=== PATIENT | female | born 1980 | race Hispanic/Latino ===

== ENCOUNTER 2020-11-14 08:17 | Outpatient (CLI) | payer OTHER ==
[2020-11-14 21:45] LABS: SARS-CoV-2 PCR by NAA Not Detected (NotDetected)
== END 2020-11-14 08:18 | disposition home or self-care (01) ==
LOC: CSHLAB 08:17
PROVIDERS: ATTEND Obstetrics & Gynecology
DX: Z20.822 Contact with and (suspected) exposure to COVID-19 (principal)
CPT/HCPCS: U0003; U0005

== ENCOUNTER 2020-11-17 18:54 | Inpatient (IN) | payer MEDICAID, OTHER, SELFPAY ==
[2020-11-17 19:44] VITALS: BMI 29.2
[2020-11-17] MEDS ORDERED: Promethazine HCl 25 MG/ML VIAL IM PRN (20:31)
[2020-11-17] MEDS ORDERED: Carboprost 250 MCG/ML AMP IM PRN (20:31)
[2020-11-17] MEDS ORDERED: Ondansetron PF 4 MG/2 ML Vial IVP PRN (20:31)
[2020-11-17] MEDS ORDERED: Lidocaine 1% (PF) 30 ML VIAL SC PRN (20:31)
[2020-11-17] MEDS ORDERED: Methylergonovine 0.2 MG/ML VIAL IM PRN (20:31)
[2020-11-17] MEDS ORDERED: hydrALAZINE 20 MG/ML VIAL SLOW IVP PRN (20:31)
[2020-11-17] MEDS ORDERED: Misoprostol 200 MCG TAB PR PRN (20:31)
[2020-11-17] MEDS ORDERED: Ibuprofen 800 MG TAB PO PRN (20:31)
[2020-11-17] MEDS ORDERED: Misoprostol 100 MCG TAB ONE (20:39)
[2020-11-17] MEDS: Misoprostol 100 MCG TAB VAG SCH ×2 (20:41→23:57)
[2020-11-17] MEDS ORDERED: Misoprostol 100 MCG TAB VAG SCH (20:45)
[2020-11-17] MEDS ORDERED: NS w/ Oxytocin 30 units 500 ML IV SCH ×2 (20:45)
[2020-11-17] MEDS ORDERED: NS w/ Oxytocin 30 units 500 ML IVPB SCH (20:45)
[2020-11-17] MEDS ORDERED: Lactated Ringer's 1,000 ML IV SCH (20:45)
[2020-11-17 20:47] LABS: Hemoglobin 11.3 g/dL (12.0-15.5); Mean Corpuscular HGB CONC 35.2 g/dL (32.0-36.0); Mean Corpuscular Hemoglobin 31.3 pg (27.0-33.0); Mean Corpuscular Volume 88.9 fl (81.6-98.3); Mean Platelet Volume 11.5 fl (7.4-10.4); Platelet Count 218 10x3/uL (150-450); RBC Distribution Width 12.4 % (11.5-14.5); Red Blood Cell (RBC) Count 3.61 10x6/uL (3.90-5.03); White Blood Cell (WBC) Count 9.1 10x3/uL (3.5-10.5)
[2020-11-17 21:16] LABS: Hep B Surf Ag Non-Reactive S/CO (NonReactive); Syphilis Antibody Nonreactive (Nonreactive); Syphilis Antibody Index 0.05 S/CO (<1.00 Non-Reactive)
[2020-11-18] MEDS ORDERED: NS w/ Oxytocin 30 units 500 ML IV SCH (10:06)
[2020-11-18] MEDS ORDERED: Boostrix 0.5 ML (Tdap) VIAL IM ONE (10:06)
[2020-11-18] MEDS ORDERED: Benzocaine-Menthol 82.5 ML CAN TOP PRN (10:06)
[2020-11-18] MEDS ORDERED: Measles/Mumps/Rubella 10 MCG/0.5 ML VIAL SC ONE (10:06)
[2020-11-18] MEDS ORDERED: Milk Of Magnesia 30 ML UDCUP PO PRN (10:06)
[2020-11-18] MEDS ORDERED: Promethazine HCl 25 MG/ML VIAL IM PRN (10:06)
[2020-11-18] MEDS ORDERED: hydrALAZINE 20 MG/ML VIAL SLOW IVP PRN (10:06)
[2020-11-18] MEDS ORDERED: Ondansetron PF 4 MG/2 ML Vial IVP PRN (10:06)
[2020-11-18] MEDS ORDERED: Preparation H Ointment 28 GM TUBE PR PRN (10:06)
[2020-11-18] MEDS ORDERED: diphenhydrAMINE 25 MG CAP PO PRN (10:06)
[2020-11-18] MEDS ORDERED: Lanolin Ointment 7 GM TUBE TOP PRN (10:06)
[2020-11-18] MEDS ORDERED: Bisacodyl 10 MG SUPP PR PRN (10:06)
[2020-11-18] MEDS ORDERED: Prenatal Vitamin 1 TAB PO SCH (10:30)
[2020-11-18] MEDS ORDERED: Docusate Calcium (SURFAK) 240 MG CAP PO SCH (10:30)
[2020-11-18] MEDS: Ibuprofen 800 MG TAB PO SCH ×2 (13:19→21:40)
[2020-11-18] MEDS: Misoprostol 100 MCG TAB VAG SCH (14:49)
[2020-11-18] MEDS: Ferrous Sulfate 325 MG TAB PO SCH (14:49)
[2020-11-18] MEDS: Docusate Calcium (SURFAK) 240 MG CAP PO SCH (21:40)
[2020-11-19] MEDS: Ibuprofen 800 MG TAB PO SCH (04:59)
[2020-11-19 07:12] LABS: Hemoglobin 10.2 g/dL (12.0-15.5); Mean Corpuscular HGB CONC 34.7 g/dL (32.0-36.0); Mean Corpuscular Hemoglobin 31.4 pg (27.0-33.0); Mean Corpuscular Volume 90.5 fl (81.6-98.3); Mean Platelet Volume 11.5 fl (7.4-10.4); Platelet Count 201 10x3/uL (150-450); RBC Distribution Width 12.5 % (11.5-14.5); Red Blood Cell (RBC) Count 3.25 10x6/uL (3.90-5.03); White Blood Cell (WBC) Count 11.4 10x3/uL (3.5-10.5)
[2020-11-19] MEDS ORDERED: Prenatal Vitamin 1 TAB PO SCH (09:00)
[2020-11-19 09:04] VITALS: BP 116/70; TEMP 98.7
[2020-11-19] MEDS: Docusate Calcium (SURFAK) 240 MG CAP PO SCH (09:21)
[2020-11-19] MEDS: Ferrous Sulfate 325 MG TAB PO SCH (09:22)
== END 2020-11-19 12:10 | disposition home or self-care (01) | DRG 807 ==
LOC: CSHLD 18:54 → CSHPP 11-18 10:25
PROVIDERS: ADMIT Family Medicine; ATTEND Family Medicine
PROC: 10E0XZZ Delivery of Products of Conception, External Approach (ICD-10-PCS; principal; 2020-11-18)
PROC: 3E033VJ Introduction of Other Hormone into Peripheral Vein, Percutaneous Approach (ICD-10-PCS; 2020-11-18)
PROC: 3E033VJ Introduction of Other Hormone into Peripheral Vein, Percutaneous Approach (ICD-10-PCS; 2020-11-18)
DX: O69.9XX0 Labor and delivery complicated by cord complication, unspecified, not applicable or unspecified (principal); Z37.0 Single live birth; O71.82 Other specified trauma to perineum and vulva; Z3A.39 39 weeks gestation of pregnancy
CPT/HCPCS: 36415; 85027; 86780; 86850; 86900; 86901; 87340; J2590